=== PATIENT | male | born 1995 | race Two or more races ===

== ENCOUNTER 2025-03-12 22:45 | Emergency (ER) | payer SELFPAY ==
[~2025-03-12] VITALS: Ht 167.6 cm; Wt 68.0 kg
--- NOTE | 2025-03-12 23:07 | ED.PDOC ---
General HPI Comments 29-year-old male who came to ER for abdominal pain and difficulty with urination since this morning. Patient denies any medical problems. Earlier today, he was having suprapubic abdominal discomfort, with a sensation of fullness, patient had this urge to urinate but found it difficult to do so, he had to push harder just to be able to urinate. Denies any nausea or vomiting. Denies any gross hematuria or dysuria. Vital signs were stable at arrival. Chief Complaint: Abdominal Pain Time Seen by MD: 23:07 Reviewed notes: Nurses Notes Allergies: Coded Allergies: NO KNOWN ALLERGIES (Unverified , 03/12/25) Information Source: Patient Mode of Arrival: Ambulatory Severity: Moderate Inability to void: Moderate Timing: Hours Duration: Since onset Has not urinated for: Minutes Symptoms: Urgency, Inability to void History of: None Location: Suprapubic associated signs and symptoms: Urgency, Inability to Void Past Medical History PAST MEDICAL HISTORY: Denies Surgical History: Denies all surgeries Family History Family History: Reviewed,noncontributory to illness Social History Smoker: Non-Smoker Alcohol: Denies ETOH Use Drugs: Denies Drug Use Lives In: Home Constitutional: denies: chills, diaphoresis, fatigue, fever, malaise, sweats, weakness, others EENTM: denies: blurred vision, double vision, ear bleeding, ear discharge, ear drainage, ear pain, ear ringing, eye pain, eye redness, hearing loss, mouth pain, mouth swelling, nasal discharge, nose bleeding, nose congestion, nose pain, photophobia, tearing, throat pain, throat swelling, voice changes, others Respiratory: denies: cough, hemoptysis, orthopnea, SOB at rest, shortness of breath, SOB with excertion, stridor, wheezing, others Cardiovascular: denies: chest pain, dizzy spells, diaphoresis, Dyspnea on exertion, edema, irregular heart beat, left arm pain, lightheadedness, palpitations, PND, syncope, others Gastrointestinal: reports: abdominal pain; denies: abdomen distended, blood streaked bowels, constipated, diarrhea, dysphagia, difficulty swallowing, hematemesis, melena, nausea, poor appetite, poor fluid intake, rectal bleeding, rectal pain, vomiting, others Genitourinary: reports: urgency, others (Difficulty voiding); denies: burning, dysuria, flank pain, frequency, hematuria, incontinence, penile discharge, penile sore, pain, testicle pain, testicle swelling Neurological: denies: dizziness, fainting, headache, left sided numbness, left sided weakness, numbness, paresthesia, pre-existing deficit, right sided numbness, right sided weakness, seizure, speech problems, tingling, tremors, weakness, others Musculoskeletal: denies: back pain, gout, joint pain, joint swelling, muscle pain, muscle stiffness, neck pain, others Integumetry: denies: bruises, change in color, change in hair/nails, dryness, laceration, lesions, lumps, rash, wounds, others Allergic/Immunocompromised: denies: Difficulty Healing, Frequent Infections, Hives, Itching, others Hematologic/Lymphatic: denies: anemia, blood clots, easy bleeding, easy bruising, swollen glands, others Endocrine: denies: excessive hunger, excessive sweating, excessive thirst, excessive urination, flushing, intolerance to cold, intolerance to heat, unexplained weight gain, unexplained weight loss, others Psychiatric: denies: anxiety, bipolar disorder, depression, hopeless, panic disorder, schizophrenia, sleepless, suicidal, others Physical Exam General Appearance: Moderate Distress ([id number] distress due to voiding concerns), Normal HEENT: Normal ENT Inspection, Pharynx Normal, TMs Normal Neck: Full Range of Motion, Non-Tender, Normal, Normal Inspection Respiratory: Chest Non-Tender, Lungs Clear, No Accessory Muscle Use, No Re spiratory Distress, Normal Breath Sounds Cardiovascular: No Edema, No JVD, No Murmur, No Gallop, Normal Peripheral Pulses, Regular Rate/Rhythm Breast Exam: Deferred Gastrointestinal: No Pulsatile Mass, Normal Bowel Sounds, Soft, Other (Patient appears to have some bladder fullness on palpation. No signs of trauma.) Genitalia: Deferred Pelvic: Deferred Rectal: Deferred Extremities: No calf tenderness, Normal capillary refill, Normal inspection, Normal range of motion, Non-tender, No pedal edema Musculoskeletal : Apperance: Normal Neurologic: Alert, No Motor Deficits, Normal Affect, Normal Mood, No Sensory Deficits Cerebellar Function: Normal Reflexes: Normal Skin: Dry, Normal Color, Warm Lymphatic: No Adenopathy Was a procedure done? Was a procedure done?: No Differential Diagnosis Kidney stone (Female): N/A Urinary Problem (Male): Bladder Outlet, Bladder Obstruction, Plelonephritis, R enal Failure, Urethritis, Urinary Retention, Urolithiasis, UTI X-Ray, Labs, Meds, VS Vital Signs Date Time Temp Pulse Resp B/P (MAP) Pulse Ox O2 Delivery O2 Flow Rate FiO2 03/12/25 23:25 66 14 97 Room Air* 0 21 03/12/25 23:24 98.2 66 14 108/67 (81) 97 98.2 03/12/25 22:59 97.4 85 16 128/63 (84) 96 97.4 Lab Test 03/12/25 22:50 Range/Units Urine Color Yellow Yellow Urine Clarity Clear Clear Urine pH 5.5 5.0-9.0 Urine Specific [place] 1.030 1.001-1.035 Urine Protein Trace H Negative Urine Ketones Trace Negative Urine Blood 3+ H Negative /uL Urine Nitrite Negative Negative Urine Bilirubin Negative Negative Urine Urobilinogen Normal Negative mg/dL Urine Leukocyte Esterase Negative Negative /uL Urine RBC 133 0 - 3 /hpf Urine Microscopic WBC 1 0-3 /HPF Urine Squamous Epithelial Cells None seen <5 /hpf Urine Bacteria None seen None Seen /hpf Urine Mucus Few None Seen Urine Glucose Normal Normal mg/dL Current Medications Medications (Trade) Dose Ordered Sig/Josefina Route Start Time Stop Time Status Last Admin Phenazopyridine HCl (Pyridium Tablet) 100 mg ONCE ONCE PO 03/12/25 23:00 03/12/25 23:01 DC 03/12/25 23:24 Ibuprofen (Motrin Tablet) 800 mg ONCE ONCE PO 03/12/25 23:00 03/12/25 23:01 DC 03/12/25 23:24 X-Ray, Labs, Meds, VS Comment All studies performed the ED were evaluated by me personally. Urinalysis was unremarkable for any infection, but had a high red blood cell count. Comes concern for a possible occlusive stone therefore, CT was ordered. Imaging studies confirmed a 2 mm stone within the bladder and some mild hydronephrosis. Advised patient of the findings and additionally, advised good hydration and utilization of medication until symptoms have resolved. Patient should maintain good hydration moving forward. Time of 1ST Reevaluation: 01:09 Reevaluation 1ST: Improved Consultation: PCP Patient Education/Counseling: Diagnosis, Treatment Family Education/Counseling: Diagnosis, Treatment, No Family Present Departure 1 Departure Time of Disposition: 01:09 Impression: Primary Impression: Kidney stone Disposition: HOME / SELF CARE / HOMELESS Condition: Stable Additional Instructions: Advised patient utilize medication as needed for symptomatic relief as well as good hydration. Patient should continue good hydration until event has passed. e-Prescriptions Ibuprofen Micronized (Ibuprofen) 800 Mg Tab 800 MG PO Q8HP PRN, #10 TAB Prov: KAR ARREOLA PAC 03/13/25 Phenazopyridine HCl (Phenazopyridine Hydrochlo) 100 Mg Tab 100 MG PO BIDP PRN, #10 TAB Prov: KAR ARREOLA PAC 03/13/25 Discharged With: Self, Friend Critical Care Note Critical Care Time?: No Stability Stability form required: No Heart Score Heart Score: Heart Score Response (Comments) Value History N/A 0 EKG N/A 0 Age N/A 0 Risk Factors N/A 0 Troponin N/A 0 Total 0 I personally scribed for KAR ARREOLA PAC ([email or web address]) on 03/12/25 at 23:07. Electronically submitted by Mikal Herbert ([email or web address]). KAR ARREOLA PAC March 12, 2025 23:07
[2025-03-12 23:24] VITALS: BP 108/67; TEMP 98.2
[2025-03-12] MEDS: PHENAZOPYRIDINE HCL 100 MG TAB PO ONE (23:24)
[2025-03-12] MEDS: IBUPROFEN 800 MG TAB PO ONE (23:24)
[2025-03-12 23:25] VITALS: PULSE 66; RESP 14; O2SAT 97
[2025-03-12 23:26] LABS: Urine Bacteria None Seen /hpf (None Seen)
[2025-03-12 23:42] LABS: Urine Blood 3+ /uL (Negative); Urine Clarity Clear (Clear); Urine Color Yellow (Yellow); Urine Mucus FEW (None Seen); Urine Protein, UAD TRACE (Negative); Urine Squamous Epithelial Cell None Seen /hpf (<5); Urine Urobilinogen Normal (Negative); Urine WBC 1 /HPF (0-3); Urine pH 5.5 (5.0-9.0)
--- NOTE | 2025-03-13 00:57 | DVH ---
Exam: CT CT AB PEL WO CON-NO ORAL OR IV History: Bladder outlet obstruction Comparison Study: None Technique: Multidetector spiral CT of the abdomen was performed from lung bases to pubic symphysis. I maging was performed without IV contrast. Axial, coronal and sagittal multiplanar reformats were obta ined from the axial data set by the technologist. Radiation Dose : 1. Abdomen/Pelvis: CTDIvol 5.87 mGy, DLP 364.36 mGy*cm. Findings: Evaluation of solid organs is limited due to lack of intravenous contrast use. Lung Bases: No acute or significant lung base finding. Normal heart size. No pleural or pericardial effusion. Liver: The liver is normal in size. No focal lesions. Gallbladder and Biliary Tree: Unremarkable Spleen: Unremarkable Pancreas: The pancreas is grossly normal in appearance. Adrenal Glands: Unremarkable Kidneys: Mild left hydronephrosis and dilatation of the left ureter. A 0.2 cm calcification is presen t within the urinary bladder just distal to the left ureterovesicular junction and may represent a re cently passed calculus. Bladder: Grossly unremarkable for degree of distention. Bowel: Small hiatal hernia. The stomach is grossly normal in appearance. Small bowel and colon are no rmal in caliber and distribution. The appendix is normal. Ascites: Absent Lymphadenopathy: No mesenteric, retroperitoneal or periportal lymphadenopathy. Abdominal Wall and Mesentery: Unremarkable. Vasculature: The visualized abdominal aorta is normal in size and caliber. Evaluation of abdominal a nd pelvic vessels is limited due to lack of intravenous contrast. Pelvic Organs: Unremarkable Musculoskeletal: No aggressive focal bony lesions, acute fractures or dislocation. IMPRESSION: 1. Mild left hydroureteronephrosis and 0.2 cm calculus within the urinary bladder just distal to the left ureterovesicular junction, possibly representing a recently passed calculus. Radiation optimization: All CT scans at this facility use at least one of these dose optimization elías hniques: automated exposure control mA and/or kV adjustment per patient size (includes targeted exam s where dose is matched to clinical indication) or iterative reconstruction.
[2025-03-13] MEDS ORDERED: IBUP-1455 PO (01:11)
[2025-03-13] MEDS ORDERED: PHEN-1044 PO (01:11)
== END 2025-03-13 01:25 | disposition home or self-care (01) ==
LOC: ER 22:45
DX: N20.0 Calculus of kidney (principal)
CPT/HCPCS: 74176; 81001